=== PATIENT | female | born 1980 | race Caucasian/White ===

== ENCOUNTER 2020-04-08 22:31 | Emergency (ER) | payer MEDICAID, MEDICARE ==
[~2020-04-08] VITALS: Ht 172.7 cm; Wt 84.0 kg
[2020-04-09 01:07] LABS: BASOPHILS % 0.9 % (0.0-2.0); HEMATOCRIT. 36.8 % (36.0-48.0); HEMOGLOBIN. 12.7 g/dL (12.0-16.0); LYMPHOCYTES % 38.9 % (20.0-50.0); MEAN CORPUSCULAR HEMOGLOBIN 30.5 pg (28.0-32.0); MEAN CORPUSCULAR VOLUME 88.3 fL (81.0-99.0); MEAN PLATELET VOLUME 8.8 fl (7.4-10.4); NEUTROPHILS % 51.2 % (40.0-76.0); PLATELET 181 x1000/uL (130-400); RED BLOOD CELL COUNT 4.17 mill/uL (4.2-5.4); RED CELL DISTRIBUTION WIDTH 13.9 % (11.6-14.6)
[2020-04-09 01:09] LABS: CHLORIDE 104 mEq/L (98-107)
[2020-04-09 01:16] LABS: ETHANOL BLOOD < 10 mg/dL
[2020-04-09 05:39] LABS: CLARITY URINE CLEAR (CLEAR); COLOR URINE YELLOW (YELLOW); KETONES URINE NEGATIVE (NEGATIVE); LEUKOCYTE ESTERASE URINE NEGATIVE (NEGATIVE); NITRITE URINE NEGATIVE (NEGATIVE); OCCULT BLOOD URINE NEGATIVE (NEGATIVE); PH URINE 6.5 (4.5-8.0); PROTEIN URINE NEGATIVE (NEGATIVE); SPECIFIC GRAVITY URINE 1.004 (1.005-1.030); UROBILINOGEN URINE 0.2 E.U./dL (0.2-1.0)
[2020-04-09 05:57] LABS: *AMPHETAMINES SCREEN URINE NEGATIVE (NEGATIVE); *BARBITURATES SCREEN URINE NEGATIVE (NEGATIVE); *BENZODIAZEPINES SCREEN URINE NEGATIVE (NEGATIVE)
[2020-04-09 05:58] LABS: *COCAINE SCREEN URINE NEGATIVE (NEGATIVE); CANNABINOID URINE SCREEN NEGATIVE (NEGATIVE); METHADONE URINE SCREEN NEGATIVE (NEGATIVE); OPIATES URINE SCREEN NEGATIVE (NEGATIVE); PHENCYCLIDINE URINE SCREEN NEGATIVE (NEGATIVE)
[2020-04-09] MEDS ORDERED: LORAZEPAM 1MG TABLET PO ONE (18:00)
[2020-04-09] MEDS: QUETIAPINE FUMARATE 50MG TABLET PO SCH (19:47)
[2020-04-09] MEDS ORDERED: HALOPERIDOL LACTATE 5MG/ML VIAL IM ONE (20:00)
[2020-04-09] MEDS ORDERED: LORAZEPAM 2MG/ML CPJ IM ONE (20:30)
[2020-04-10] MEDS: QUETIAPINE FUMARATE 50MG TABLET PO SCH ×2 (09:29→20:58)
[2020-04-10] MEDS: LORAZEPAM 1MG TABLET PO SCH ×2 (18:20→20:57)
[2020-04-10 22:15] VITALS: BP 97/60
== END 2020-04-10 22:50 ==
LOC: ER 22:31
DX: R45.851 Suicidal ideations (principal); F20.9 Schizophrenia, unspecified; F31.9 Bipolar disorder, unspecified; F17.200 Nicotine dependence, unspecified, uncomplicated; Z71.6 Tobacco abuse counseling
CPT/HCPCS: 93005; 99285; 99406; J1630; J2060; Z7610